=== PATIENT | female | born 1945 | race Caucasian/White ===

== ENCOUNTER 2017-10-10 14:21 | Inpatient (IN) | payer MEDICARE ==
[2017-10-10] MEDS ORDERED: NITROGLYCERIN OINT 1 INCH/GM PACKET TOPICAL STA (14:28)
[2017-10-10] MEDS ORDERED: ATORVASTATIN 80 MG TAB PO STA (14:29)
--- NOTE | 2017-10-10 14:36 | ED ---
Chest Pain HPI - General Stated Complaint: STEMI Time Seen by Provider: 10/10/17 14:21 Source: patient, RN/MD, EMS, RN notes reviewed Mode of arrival: EMS - History of Present Illness Initial Comments: This is a 72-year-old female history of hypertension thyroid disease who was sent from [facility] with reports of an inferior wall myocardial infarction. Patient apparently last week has some burning to her jaw and mouth area while she was biking. She normally walks and bikes every day today she was out biking and walking and had no pain but her thought she looked a little bit pale and she may pass out she was taken to [facility] and found have on her EKG elevations in leads II, III, and F aVF. She was transferred to this facility for evaluation by cardiology. She currently is pain-free he only said that she had this morning was dizziness no chest pain no jaw pain. Upon arrival she was seen in this facility by Dr. Bellamy. No other complaints other modifying factors. MD Complaint: chest pain - Related Data Allergies Allergy/AdvReac Type Severity Reaction Status Date / Time No Known Allergies Allergy Verified 10/10/17 14:35 Review of Systems ROS Statement: Those systems with pertinent positive or pertinent negative responses have been documented in the HPI. ROS Other: All systems not noted in ROS Statement are negative. General Exam - General Exam Comments Initial Comments: This a well-developed molars awake alert oriented 3 female General appearance: alert, in no apparent distress Head exam: Present: atraumatic, normocephalic, normal inspection Eye exam: Present: normal appearance, PERRL, EOMI. Absent: scleral icterus, conjunctival injection, periorbital swelling ENT exam: Present: normal exam, mucous membranes moist Neck exam: Present: normal inspection. Absent: tenderness, meningismus, lymphadenopathy Respiratory exam: Present: normal lung sounds bilaterally. Absent: respiratory distress, wheezes, rales, rhonchi, stridor Cardiovascular Exam: Present: regular rate, normal rhythm, normal heart sounds. Absent: systolic murmur, diastolic murmur, rubs, gallop, clicks GI/Abdominal exam: Present: soft, normal bowel sounds. Absent: distended, tenderness, guarding, rebound, rigid Extremities exam: Present: normal inspection, full ROM, normal capillary refill. Absent: tenderness, pedal edema, joint swelling, calf tenderness Back exam: Present: normal inspection Neurological exam: Present: alert, oriented X3, CN II-XII intact Psychiatric exam: Present: normal affect, normal mood Skin exam: Present: warm, dry, intact, normal color. Absent: rash Course Vital Signs 10/10/17 14:22 Temperature 97 F L Pulse Rate 79 Respiratory 18 Rate Blood Pressure 142/74 O2 Sat by Pulse 99 Oximetry Chest Pain MDM - MDM The patient was seen in the emergency department by cardiology and will was taken to the General Office Worker for evaluation. Patient is a city call the patient I did discuss the case with Dr. Da Silva Disposition Clinical Impression: ST elevation myocardial infarction (STEMI) Disposition: ADMITTED IP TO THIS HOSP Condition: Serious
[2017-10-10 14:41] LABS: Basophils % (A) 0 %; Eosinophils % (A) 0 %; HCT 38.3 % (34.0-46.0); HGB 12.8 gm/dL (11.4-16.0); Lymphocytes # (A) 0.9 k/uL (1.0-4.8); Lymphocytes % (A) 13 %; MCH 29.6 pg (25.0-35.0); MCHC 33.4 g/dL (31.0-37.0); MCV 88.7 fL (80.0-100.0); Mean Platelet Volume 6.3; Monocytes # (A) 0.3 k/uL (0-1.0); Monocytes % (A) 5 %; Neutrophils # (A) 5.8 k/uL (1.3-7.7); Neutrophils % (A) 80 %; Platelet Count 169 k/uL (150-450); RBC 4.32 m/uL (3.80-5.40); RDW 13.7 % (11.5-15.5); WBC 7.2 k/uL (3.8-10.6)
[2017-10-10 14:48] LABS: ALT 38 U/L (9-52); AST 69 U/L (14-36); Albumin 3.8 g/dL (3.5-5.0); Alkaline Phosphatase 57 U/L (38-126); Anion Gap 5 mmol/L; Blood Urea Nitrogen 17 mg/dL (7-17); Carbon Dioxide 25 mmol/L (22-30); Chloride 110 mmol/L (98-107); Glucose 119 mg/dL (74-99); Potassium 4.4 mmol/L (3.5-5.1); Sodium 140 mmol/L (137-145); Total Bilirubin 0.6 mg/dL (0.2-1.3); Total Protein 6.2 g/dL (6.3-8.2)
[2017-10-10] MEDS ORDERED: MIDAZOLAM 2 MG/2 ML VIAL IVP ONE (14:52)
[2017-10-10] MEDS ORDERED: LIDOCAINE 1% INJ 10MG/ML (20 ML MDV) SQ ONE (14:52)
[2017-10-10] MEDS ORDERED: fentaNYL (PF) 50 MCG/ML 2 ML AMP IVP ONE (14:52)
[2017-10-10 15:00] LABS: INR 1.1 (<1.2); Prothrombin Time 10.8 sec (9.0-12.0)
[2017-10-10] MEDS ORDERED: HEPARIN SOD,PORK IN 0.45% NACL 25,000 UNIT in 0.45% NACL 1 500ML.BAG IV SCH (15:00)
[2017-10-10 15:10] LABS: Glucose,Whole Blood 123 mg/dL (75-99)
[2017-10-10 15:10] LABS: Partial Thromboplastin Time 122.7 sec (22.0-30.0)
[2017-10-10] MEDS ORDERED: NITROGLYCERIN SL TABS 0.4 MG TAB SUBLINGUAL PRN (15:14)
[2017-10-10 15:20] LABS: Creatine Kinase MB 53.7 ng/mL (0.0-2.4); Troponin I 3.51 ng/mL (0.000-0.034)
--- NOTE | 2017-10-10 15:23 | ED ---
Medical Decision Making - Lab Data Result diagrams: 10/10/17 14:30 10/10/17 14:30 Lab Results 10/10/17 10/10/17 10/10/17 Range/Units 14:30 14:30 14:30 WBC 7.2 (3.8-10.6) k/uL RBC 4.32 (3.80-5.40) m/uL Hgb 12.8 (11.4-16.0) gm/dL Hct 38.3 (34.0-46.0) % MCV 88.7 (80.0-100.0) fL MCH 29.6 (25.0-35.0) pg MCHC 33.4 (31.0-37.0) g/dL RDW 13.7 (11.5-15.5) % Plt Count 169 (150-450) k/uL Neutrophils % 80 % Lymphocytes % 13 % Monocytes % 5 % Eosinophils % 0 % Basophils % 0 % Neutrophils # 5.8 (1.3-7.7) k/uL Lymphocytes # 0.9 L (1.0-4.8) k/uL Monocytes # 0.3 (0-1.0) k/uL Eosinophils # 0.0 (0-0.7) k/uL Basophils # 0.0 (0-0.2) k/uL PT (9.0-12.0) sec INR (<1.2) APTT (22.0-30.0) sec Sodium 140 (137-145) mmol/L Potassium 4.4 (3.5-5.1) mmol/L Chloride 110 H (98-107) mmol/L Carbon Dioxide 25 (22-30) mmol/L Anion Gap 5 mmol/L BUN 17 (7-17) mg/dL Creatinine 0.70 (0.52-1.04) mg/dL Est GFR (CKD-EPI)AfAm >90 (>60 ml/min/1.73 sqM) Est GFR (CKD-EPI)NonAf 87 (>60 ml/min/1.73 sqM) Glucose 119 H (74-99) mg/dL Calcium 9.0 (8.4-10.2) mg/dL Total Bilirubin 0.6 (0.2-1.3) mg/dL AST 69 H (14-36) U/L ALT 38 (9-52) U/L Alkaline Phosphatase 57 (38-126) U/L Total Creatine Kinase 443 H (30-135) U/L Total Protein 6.2 L (6.3-8.2) g/dL Albumin 3.8 (3.5-5.0) g/dL 10/10/17 Range/Units 14:30 WBC (3.8-10.6) k/uL RBC (3.80-5.40) m/uL Hgb (11.4-16.0) gm/dL Hct (34.0-46.0) % MCV (80.0-100.0) fL MCH (25.0-35.0) pg MCHC (31.0-37.0) g/dL RDW (11.5-15.5) % Plt Count (150-450) k/uL Neutrophils % % Lymphocytes % % Monocytes % % Eosinophils % % Basophils % % Neutrophils # (1.3-7.7) k/uL Lymphocytes # (1.0-4.8) k/uL Monocytes # (0-1.0) k/uL Eosinophils # (0-0.7) k/uL Basophils # (0-0.2) k/uL PT 10.8 (9.0-12.0) sec INR 1.1 (<1.2) APTT 122.7 H* (22.0-30.0) sec Sodium (137-145) mmol/L Potassium (3.5-5.1) mmol/L Chloride (98-107) mmol/L Carbon Dioxide (22-30) mmol/L Anion Gap mmol/L BUN (7-17) mg/dL Creatinine (0.52-1.04) mg/dL Est GFR (CKD-EPI)AfAm (>60 ml/min/1.73 sqM) Est GFR (CKD-EPI)NonAf (>60 ml/min/1.73 sqM) Glucose (74-99) mg/dL Calcium (8.4-10.2) mg/dL Total Bilirubin (0.2-1.3) mg/dL AST (14-36) U/L ALT (9-52) U/L Alkaline Phosphatase (38-126) U/L Total Creatine Kinase (30-135) U/L Total Protein (6.3-8.2) g/dL Albumin (3.5-5.0) g/dL Disposition Clinical Impression: ST elevation myocardial infarction (STEMI) Disposition: ADMITTED IP TO THIS HOSP Condition: Serious
[2017-10-10] MEDS ORDERED: ATROPINE SULFATE 0.1 MG/ML 10ML SYRINGE IVP ONE (15:30)
[2017-10-10] MEDS ORDERED: NITROGLYCERIN 1000MCG/10ML SYRINGE INTRACORON ONE (15:32)
[2017-10-10] MEDS ORDERED: IOPAMIDOL-370 125ML BTL INJ ONE (15:34)
[2017-10-10] MEDS ORDERED: IOPAMIDOL-370 100ML BTL INJ ONE (15:35)
[2017-10-10] MEDS ORDERED: CLOPIDOGREL 75 MG TAB PO ONE (15:41)
[2017-10-10] MEDS ORDERED: ATROPINE SULFATE 0.1 MG/ML 10ML SYRINGE IV PRN (15:42)
[2017-10-10] MEDS ORDERED: ZOLPIDEM 5 MG TAB PO PRN (15:42)
[2017-10-10] MEDS ORDERED: MAG HYDROX/AL HYDROX/SIMETH 30 ML CUP PO PRN (15:42)
[2017-10-10] MEDS ORDERED: RX INFO: IV CONTRAST WAS GIVEN 1 EACH MISC MISCELLANE PRN (15:42)
[2017-10-10] MEDS ORDERED: IV FLUID CONTINUATION 1,000 ML IV ONE (15:44)
--- NOTE | 2017-10-10 16:54 | CONS ---
CONSULTATION Meenakshi Piedra is a 72-year-old female who went to [facility] after being very dizzy and lightheaded and her finding her connor and not looking well. She was there approximately 12 noon. I received a call from that this is a lady who presented with syncope and her 12-lead ECG showed ST elevation in the inferior leads, but she was completely pain free. According to the patient, she walks 1 mile every day starting at around 4 o'clock in the morning. Then she bicycles 5 miles every day in the morning too. Over the last 1 week she has been experiencing intermittent pain in the roof of the mouth as well as in the neck, but she did not been seek any medical attention. She has no chest pain, no shortness of breath. This morning, she went for her usual walk and then bike and when she came back, she felt very dizzy and lightheaded. At no point in time did she have any jaw discomfort today. No chest pain. No undue shortness of breath. Her thought that she looked very poorly and looked connor and was brought to the ER. A 12-lead ECG that showed ST-elevation in the inferior leads with Q-waves. When she arrived here, she was completely asymptomatic. Her 12-lead ECG showed Q-waves with ST elevation and T-wave inversion suggestive of a completed inferior wall [place]. PAST HISTORY: Hypertension. She takes metoprolol for this. She has a history of dyslipidemia and does not take any cholesterol-lowering medications or statins. She denies any diabetes. SOCIAL HISTORY: She is a nonsmoker. No significant alcohol use. REVIEW OF SYSTEMS: No fever, chills, or rigors. No cough or expectoration. No nausea, vomiting, or diarrhea. No hematuria or dysuria. No strokes or seizures. No skin lesions or musculoskeletal complaints. EXAMINATION: When she arrived, her blood pressure was 142/74 mmHg, afebrile at 97 degrees Fahrenheit, pulse rate in the 70s. Head and neck examination is normal. No JVD, thyromegaly or carotid bruits. Heart sounds S1, S2 normal. No murmurs or gallops no rub. The breath sounds are clear. No rhonchi. No crackles. Extremities are warm. No edema. A 12-lead ECG shows a ST elevation in inferior leads with Q-waves as well as T-wave inversions consistent with a completed recent myocardial infarction. IMPRESSION: 1. Completed inferior wall myocardial infarction. 2. Hypertension. 3. Dyslipidemia. SUGGEST: Proceed with coronary angiography today. I spoke to Dr. Bautista. I spoke to the patient and daughter and explained this to them in detail. She has been treated with IV heparin and aspirin in the emergency room at [facility]. We gave statins. She is already on beta blockers and she is being transferred to the chemistry laboratory technician. Further management thereafter. MMODL / IJN: [id number] /
--- NOTE | 2017-10-10 17:03 | CC ---
CARDIAC CATHETERIZATION REPORT Mrs. Piedra is a 72-year-old lady who was transferred from the [facility] where she presented with symptoms of not feeling well. She was connor and she had a dizzy spell. EKG was suggestive of acute inferior wall myocardial infarction. Patient was transferred over here. Patient received a heparin bolus was started on heparin drip and got 4 aspirin. When the patient arrived here she was almost pain free. There was a mild ST-segment elevation. The patient has a history of hypertension. There is no previous history of angina. In route from [facility] to the ER here the patient did get excessive amount of heparin and her ACT was more than 300 before we started the procedure. PROCEDURE: The right groin was prepped and draped in the usual manner and the skin was infiltrated with 2% Xylocaine. The right femoral artery was entered using Seldinger technique a #6- Chinese sheath was placed in. Selective coronary angiography was then performed in multiple projections and the left ventricular pressures were obtained. The patient tolerated the procedure well. HEMODYNAMICS: The left ventricular end-diastolic pressure is 20 mmHg prior to angiography. No gradient is noted across the aortic valve. SELECTIVE CORONARY ANGIOGRAPHY: Left main coronary artery is normal and patent. LAD is a good caliber blood vessel and gives rise to a medium-sized diagonal branch. The LAD after the origin of the diagonal branch has 80% stenosis. The ostium of the diagonal branch has an 85% stenosis. Circumflex coronary artery is normal. Right coronary artery has diffuse disease and there was a 99% stenosis in its mid portion with CASTRO-3 flow noted. FINAL IMPRESSION: This study shows a 99% stenosis of the mid RCA with CASTRO-3 flow. The LAD has 80% stenosis. The first diagonal branch is 80-90% stenosis. RECOMMENDATIONS: Films were reviewed with Dr. Manzo. We will proceed with a stent to the RCA. MMODL / IJN: [id number] /
[2017-10-10 18:48] LABS: Potassium 3.9 mmol/L (3.5-5.1)
[2017-10-10 19:38] LABS: Glucose,Whole Blood 87 mg/dL (75-99)
[2017-10-10] MEDS: SODIUM CHLORIDE 0.9% 1,000 ML IV SCH (20:00)
[2017-10-10] MEDS ORDERED: SODIUM CHLORIDE 0.9% 1,000 ML IV ONE (20:55)
[2017-10-10] MEDS: DOPamine DRIP 800 MG in DEXTROSE/WATER 1 500ML.BAG IV SCH (21:37)
[2017-10-10 22:42] LABS: HCT 33.1 % (34.0-46.0); HGB 11.2 gm/dL (11.4-16.0); MCH 29.7 pg (25.0-35.0); MCHC 33.8 g/dL (31.0-37.0); Mean Platelet Volume 6.8; Platelet Count 206 k/uL (150-450); RBC 3.76 m/uL (3.80-5.40); RDW 13.6 % (11.5-15.5); WBC 10.3 k/uL (3.8-10.6)
--- NOTE | 2017-10-10 23:10 | P.CONS ---
History of Present Illness - Reason for Consult Consult date: 10/10/17 medical management Requesting physician: Wander Arroyo - Chief Complaint lighthededness, dizziness - History of Present Illness 72-year-old female with past medical history of hypertension, hypothyroid and hyperlipidemia. Patient presented to the hospital due to not feeling well, patient was having some dizzy spells today after working out. She claims that for many years now she walks sometimes runs 1 mile every day and rides her bike for 5 miles every day. However today after her routine she felt dizzy and lightheaded and per her she looked "poorly". Patient denies any chest pain or shortness of breath associated with that denies any nausea or vomiting denies any fevers chills and or coughing. She was taken to the hospital at [facility] and EKG suggested an inferior MO she was transferred to our facility for further cardiac care. At our facility patient was taken emergently to the Event Sales Manager and a stent was placed in her RCA. Patient denies any symptoms or history of angina denies any GI bleeding. However she does report history of hyperlipidemia treated and history of premature cad in her dad. Currently patient laying comfortable in bed not in any acute distress denies any chest pain or trouble breathing. Currently patient is being managed in the ICU her blood pressure pressure as being borderline and cardiology recommended starting dopamine, this by that patient continues to be asymptomatic. Review of Systems Pertinent positives as noted in HPI. All other systems were reviewed and are negative Past Medical History Past Medical History: Hyperlipidemia, Hypertension Additional Past Medical History / Comment(s): UTERINE CANCER History of Any Multi-Drug Resistant Organisms: None Reported Past Surgical History: Tonsillectomy Additional Past Surgical History / Comment(s): D AND C Past Psychological History: No Psychological Hx Reported Smoking Status: Former smoker Past Alcohol Use History: None Reported Past Drug Use History: None Reported - Past Family History Father Family Medical History: Coronary Artery Disease (CAD) Medications and Allergies Home Medications Medication Instructions Recorded Confirmed Type Fluticasone Nasal [place] [Flonase 1 - 2 spray EA NOSTRIL BID PRN 10/10/17 History Nasal [place]] Levothyroxine Sodium [Synthroid] 100 mcg PO DAILY 10/10/17 10/10/17 History Metoprolol Tartrate [Lopressor] 25 mg PO DAILY 10/10/17 10/10/17 History Allergies Allergy/AdvReac Type Severity Reaction Status Date / Time No Known Allergies Allergy Verified 10/10/17 14:35 Physical Exam Vitals: Vital Signs Temp Pulse Pulse Resp BP BP Pulse Ox 10/10/17 19:20 97.8 F 62 23 86/59 97 10/10/17 19:18 27 H 10/10/17 18:33 66 16 104/66 97 10/10/17 18:00 56 L 18 113/71 97 10/10/17 17:30 62 18 115/73 99 10/10/17 17:14 78 18 121/76 97 10/10/17 16:51 70 16 97 10/10/17 16:33 82 18 119/69 96 10/10/17 16:10 85 16 119/76 97 10/10/17 14:22 97 F L 79 18 142/74 99 Intake and Output 10/10/17 10/10/17 10/10/17 06:59 14:59 22:59 Intake Total 250 Balance 250 Intake: IV 250 Other: # Voids 1 Weight 63.503 kg Constitutional: No acute distress, conversant, pleasant Eyes: Anicteric sclerae, moist conjunctiva, no lid-lag Pupils equal round reactive to light ENMT: NC/AT Oropharynx clear, no erythema, exudates Neck: Supple, FROM, no masses, or JVD No carotid bruits No thyromegaly Lungs: Clear to auscultation Clear to percussion Normal respiratory effort, no accessory muscle use Cardiovascular: Heart regular in rate and rhythm, No murmurs, gallops, or rubs No peripheral edema Abdominal: Soft Nontender, no guarding, rebound or rigidity Abdomen moving with respiration Normoactive bowel sounds No hepatomegaly, No splenomegaly No palpable mass No abdominal wall hernia noted Skin: Normal temperature, tone, texture, turgor No induration No subcutaneous nodules No rash, lesions No ulcers Extremities: Right groin arterial line, no surrounding bruising or hematoma No digital cyanosis No clubbing Pedal pulses intact and symmetrical Radial pulses intact and symmetrical No calf tenderness Psychiatric: Alert and oriented to person, place and time Appropriate affect fair judgment Neuro Muscles Strength 5/5 in all 4 extremities Sensation to light touch grossly present throughout Cranial nerves II-XII grossly intact No focal sensory deficits Lymphatics: no palpable cervical or supraclavicular , or inguinal lymph nodes Results CBC & Chem 7: 10/10/17 22:30 10/10/17 17:40 Labs: Abnormal Lab Results - Last 24 Hours (Table) 10/10/17 10/10/17 10/10/17 Range/Units 14:30 14:30 14:30 RBC (3.80-5.40) m/uL Hgb (11.4-16.0) gm/dL Hct (34.0-46.0) % Lymphocytes # 0.9 L (1.0-4.8) k/uL APTT (22.0-30.0) sec Chloride 110 H (98-107) mmol/L Glucose 119 H (74-99) mg/dL POC Glucose (mg/dL) (75-99) mg/dL AST 69 H (14-36) U/L Total Creatine Kinase 443 H (30-135) U/L CK-MB (CK-2) 53.7 H* (0.0-2.4) ng/mL Troponin I 3.510 H* (0.000-0.034) ng/mL Total Protein 6.2 L (6.3-8.2) g/dL 10/10/17 10/10/17 10/10/17 Range/Units 14:30 14:36 15:30 RBC (3.80-5.40) m/uL Hgb (11.4-16.0) gm/dL Hct (34.0-46.0) % Lymphocytes # (1.0-4.8) k/uL APTT 122.7 H* >200.0 H* (22.0-30.0) sec Chloride (98-107) mmol/L Glucose (74-99) mg/dL POC Glucose (mg/dL) 123 H (75-99) mg/dL AST (14-36) U/L Total Creatine Kinase (30-135) U/L CK-MB (CK-2) (0.0-2.4) ng/mL Troponin I (0.000-0.034) ng/mL Total Protein (6.3-8.2) g/dL 10/10/17 10/10/17 Range/Units 20:35 22:30 RBC 3.76 L (3.80-5.40) m/uL Hgb 11.2 L (11.4-16.0) gm/dL Hct 33.1 L (34.0-46.0) % Lymphocytes # (1.0-4.8) k/uL APTT >200.0 H* (22.0-30.0) sec Chloride (98-107) mmol/L Glucose (74-99) mg/dL POC Glucose (mg/dL) (75-99) mg/dL AST (14-36) U/L Total Creatine Kinase (30-135) U/L CK-MB (CK-2) (0.0-2.4) ng/mL Troponin I (0.000-0.034) ng/mL Total Protein (6.3-8.2) g/dL Assessment and Plan Assessment: 72-year-old female with history of hypertension, hypothyroid, hyperlipidemia. Patient presented to the hospital from [facility] due to inferior MO, patient was taken to the clinical laboratory science professor and stent was placed in the RCA. Currently her blood pressure is borderline low and was started on dopamine for cardiology patient continues to be asymptomatic posterior left heart cath. Medicine was consult for medical management Plan: Completed Inferior wall myocardial infarction Coronary artery disease Status post left heart cath, stent and RCA aspirin and Plavix and statin Cardiology following Due to hypotension patient was not initiated on beta ashley and MATHEW inhibitor Hypotension currently asymptomatic On dopamine per cardiology Monitor urine output Monitor renal function History of hypertension currently hypotensive as above Hypothyroidism Continue levothyroxine Hyperlipidemia Atorvastatin DVT prophylaxis Heparin subcu 3 times a day Mild anemia Continue to monitor hemoglobin Consider outpatient workup and follow-up Follow up labs Thank you for allowing us to participate in the care of this patient. Do not hesitate to contact us with questions. Someone can be reached from the [facility] hospitalist group at all hours of the day at [phone].
[2017-10-10] MEDS: ATORVASTATIN 80 MG TAB PO SCH (23:28)
[2017-10-10] MEDS ORDERED: HYDROcodone/APAP 5-325MG 1 EACH TAB PO PRN (23:36)
--- NOTE | 2017-10-11 05:06 | PTCA ---
PERCUTANEOUSTRANS CORORONARY ANGIOGRAPHY DATE OF SERVICE: 10/10/2017 PERFORMING PHYSICIAN: Bola Manzo MD, Mortgage Closing Clerk PROCEDURE PERFORMED: Successful stenting of the mid RCA using 2.5 x 15 mm Xience STEPHANIE with good angiographic results. INDICATION: This is a pleasant 72-year-old female patient who presented to the emergency room and admitted at [facility] complaining of chest discomfort and she was myocardial infarction. She was transferred immediately to [facility] where the patient underwent a heart catheterization by Dr. Bautista and was found to have critical disease involving the mid RCA. The decision was made towards percutaneous coronary intervention. APPROACH: Right common femoral artery. COMPLICATION: None. LEVEL OF SEDATION: Moderate with sedation length of 28 minutes. PROCEDURE DESCRIPTION: After diagnostic heart catheterization was performed by Dr. Erika Bautista and after reviewing the angiogram, I did engage the RCA using a JR4 guiding catheter. A whisper wire was used to wire . After that, I did using 2 12 mm balloon before I deployed 2.5 x 15 mm Xience STEPHANIE where the stent was positioned under fluoroscopy guidance and deployed under its nominal pressure. The following angiogram showed good angiographic results. The procedure was completed without any complication. Please note that I did not use any anticoagulation because the patient was given high dose heparin and the ACT . POSTPROCEDURE MANAGEMENT: 1. Dual antiplatelet therapy. 2. Risk factors modifications. 3. Follow up with the patient. MMODL / IJN: [id number] /
[2017-10-11 05:18] LABS: Basophils % (A) 0 %; Eosinophils % (A) 0 %; HCT 33.6 % (34.0-46.0); HGB 11.4 gm/dL (11.4-16.0); Lymphocytes # (A) 0.8 k/uL (1.0-4.8); Lymphocytes % (A) 9 %; MCH 30.2 pg (25.0-35.0); Mean Platelet Volume 7.1; Monocytes # (A) 0.5 k/uL (0-1.0); Monocytes % (A) 5 %; Neutrophils # (A) 7.9 k/uL (1.3-7.7); Neutrophils % (A) 84 %; Platelet Count 207 k/uL (150-450); RBC 3.77 m/uL (3.80-5.40); RDW 13.8 % (11.5-15.5); WBC 9.5 k/uL (3.8-10.6)
[2017-10-11 05:38] LABS: ALT 56 U/L (9-52); AST 263 U/L (14-36); Albumin 3.2 g/dL (3.5-5.0); Alkaline Phosphatase 52 U/L (38-126); Anion Gap 5 mmol/L; Blood Urea Nitrogen 15 mg/dL (7-17); Calcium 8.5 mg/dL (8.4-10.2); Carbon Dioxide 22 mmol/L (22-30); Chloride 112 mmol/L (98-107); Cholesterol 191 mg/dL (<200); Glucose 129 mg/dL (74-99); HDL Cholesterol 55 mg/dL (40-60); LDL Cholesterol,Calculated 121 mg/dL (0-99); Potassium 3.6 mmol/L (3.5-5.1); Sodium 139 mmol/L (137-145); Total Bilirubin 0.9 mg/dL (0.2-1.3); Total Protein 5.2 g/dL (6.3-8.2); Triglycerides 74 mg/dL (<150)
[2017-10-11 06:12] LABS: Troponin I 38.3 ng/mL (0.000-0.034)
[2017-10-11 07:34] LABS: T4, Free (Free Thyroxine) 1.57 ng/dL (0.78-2.19)
[2017-10-11] MEDS ORDERED: HEPARIN SODIUM,PORCINE 5,000 UNIT/ML 1 ML VIAL SQ SCH (08:00)
[2017-10-11] MEDS ORDERED: Potassium Replacement Protocol 1 EACH MISC MISCELLANE PRN (08:23)
[2017-10-11] MEDS: ASPIRIN 81 MG PO SCH (08:26)
[2017-10-11] MEDS: LEVOTHYROXINE 100 MCG TAB PO SCH (08:26)
[2017-10-11] MEDS: SODIUM CHLORIDE 0.9% 1,000 ML IV SCH ×5 (08:27→22:07)
[2017-10-11] MEDS ORDERED: POTASSIUM CHLORIDE ER 20 MEQ TAB.ER PO SCH (09:00)
[2017-10-11] MEDS ORDERED: ASPIRIN 325 MG TAB PO SCH (09:00)
--- NOTE | 2017-10-11 09:43 | P.PN ---
Subjective Progress Note Date: 10/11/17 Principal diagnosis: STEMI Patient is doing well today. She is awake and alert. She denies any chest pain. She still requiring dopamine and her systolic blood pressure is in the 80s and low 90s. Cardiology following closely. Objective - Vital Signs Vital signs: Vital Signs Temp 97.9 F 10/11/17 04:00 Pulse 74 10/11/17 08:00 Resp 26 H 10/11/17 08:00 BP 98/52 10/11/17 08:00 Pulse Ox 100 10/11/17 08:00 Intake & Output 10/10/17 10/11/17 10/11/17 18:59 06:59 18:59 Intake Total 250 2250 100 Output Total 225 Balance 250 5 100 Weight 63.503 kg 63.5 kg Intake: IV 250 2250 100 Sodium Chloride 0.9% 1, 750 100 000 ml @ 100 mls/hr IV . Q10H [facility] Rx#:[id number] Sodium Chloride 0.9% 1, 1500 000 ml @ 999 mls/hr IV . Q1H1M ONE Rx#:[id number] Output: Urine 225 Other: # Voids 1 1 ABP, PAP, CO, CI - Last Documented Arterial Blood Pressure 49/49 - Exam General: The patient is awake and alert, in no distress Eye: there is normal conjunctiva bilaterally. Neck: The neck is supple, there is no JVD. Cardiovascular: Normal S1-S2, no S3-S4, no murmurs. Respiratory: Lungs clear to auscultation bilaterally Gastrointestinal: Abdomen is soft, nontender Musculoskeletal: There is no pedal edema. Neurological:. Speech is normal. Skin: Skin is warm and dry - Labs CBC & Chem 7: 10/11/17 04:56 10/11/17 04:56 Labs: Abnormal Lab Results - Last 24 Hours (Table) 10/10/17 10/10/17 10/10/17 Range/Units 14:30 14:30 14:30 RBC (3.80-5.40) m/uL Hgb (11.4-16.0) gm/dL Hct (34.0-46.0) % Neutrophils # (1.3-7.7) k/uL Lymphocytes # 0.9 L (1.0-4.8) k/uL APTT (22.0-30.0) sec Chloride 110 H (98-107) mmol/L Glucose 119 H (74-99) mg/dL POC Glucose (mg/dL) (75-99) mg/dL AST 69 H (14-36) U/L ALT (9-52) U/L Total Creatine Kinase 443 H (30-135) U/L CK-MB (CK-2) 53.7 H* (0.0-2.4) ng/mL Troponin I 3.510 H* (0.000-0.034) ng/mL Total Protein 6.2 L (6.3-8.2) g/dL Albumin (3.5-5.0) g/dL LDL Cholesterol, Calc (0-99) mg/dL TSH (0.465-4.680) mIU/L 10/10/17 10/10/17 10/10/17 Range/Units 14:30 14:36 15:30 RBC (3.80-5.40) m/uL Hgb (11.4-16.0) gm/dL Hct (34.0-46.0) % Neutrophils # (1.3-7.7) k/uL Lymphocytes # (1.0-4.8) k/uL APTT 122.7 H* >200.0 H* (22.0-30.0) sec Chloride (98-107) mmol/L Glucose (74-99) mg/dL POC Glucose (mg/dL) 123 H (75-99) mg/dL AST (14-36) U/L ALT (9-52) U/L Total Creatine Kinase (30-135) U/L CK-MB (CK-2) (0.0-2.4) ng/mL Troponin I (0.000-0.034) ng/mL Total Protein (6.3-8.2) g/dL Albumin (3.5-5.0) g/dL LDL Cholesterol, Calc (0-99) mg/dL TSH (0.465-4.680) mIU/L 10/10/17 10/10/17 10/10/17 Range/Units 20:35 22:30 22:30 RBC 3.76 L (3.80-5.40) m/uL Hgb 11.2 L (11.4-16.0) gm/dL Hct 33.1 L (34.0-46.0) % Neutrophils # (1.3-7.7) k/uL Lymphocytes # (1.0-4.8) k/uL APTT >200.0 H* (22.0-30.0) sec Chloride (98-107) mmol/L Glucose (74-99) mg/dL POC Glucose (mg/dL) (75-99) mg/dL AST (14-36) U/L ALT (9-52) U/L Total Creatine Kinase 1231 H (30-135) U/L CK-MB (CK-2) 113.0 H* (0.0-2.4) ng/mL Troponin I 49.000 H* (0.000-0.034) ng/mL Total Protein (6.3-8.2) g/dL Albumin (3.5-5.0) g/dL LDL Cholesterol, Calc (0-99) mg/dL TSH (0.465-4.680) mIU/L 10/11/17 10/11/17 10/11/17 Range/Units 04:56 04:56 04:56 RBC 3.77 L (3.80-5.40) m/uL Hgb (11.4-16.0) gm/dL Hct 33.6 L (34.0-46.0) % Neutrophils # 7.9 H (1.3-7.7) k/uL Lymphocytes # 0.8 L (1.0-4.8) k/uL APTT (22.0-30.0) sec Chloride 112 H (98-107) mmol/L Glucose 129 H (74-99) mg/dL POC Glucose (mg/dL) (75-99) mg/dL AST 263 H (14-36) U/L ALT 56 H (9-52) U/L Total Creatine Kinase 1296 H (30-135) U/L CK-MB (CK-2) 103.0 H* (0.0-2.4) ng/mL Troponin I 38.300 H* (0.000-0.034) ng/mL Total Protein 5.2 L (6.3-8.2) g/dL Albumin 3.2 L (3.5-5.0) g/dL LDL Cholesterol, Calc 121 H (0-99) mg/dL TSH 0.267 L (0.465-4.680) mIU/L Assessment and Plan Assessment: 72-year-old female with history of hypertension, hypothyroid, hyperlipidemia. Patient presented to the hospital from [facility] due to inferior AL, patient was taken to the ammunition [employer] laborer and stent was placed in the RCA. Currently her blood pressure is borderline low and she is still maintained on dopamine for cardiology patient continues to be asymptomatic post left heart cath. No acute events overnight Plan: Completed Inferior wall myocardial infarction Coronary artery disease Status post left heart cath, stent and RCA aspirin and Plavix and statin Cardiology following Due to hypotension patient was not initiated on beta ashley and MATHEW inhibitor Hypotension currently asymptomatic On dopamine per cardiology Monitor urine output Monitor renal function History of hypertension currently hypotensive as above Hypothyroidism Continue levothyroxine Hyperlipidemia Atorvastatin DVT prophylaxis Heparin subcu 3 times a day Mild anemia Continue to monitor hemoglobin Consider outpatient workup and follow-up
[2017-10-11] MEDS: CLOPIDOGREL 75 MG TAB PO SCH (11:27)
--- NOTE | 2017-10-11 12:17 | ECHOF ---
Referral Reason:s/p STEMI MEASUREMENTS -------- HEIGHT: 154.9 cm WEIGHT: 63.5 kg BP: 119/69 RVIDd: 2.3 cm (< 3.3) IVSd: 0.9 cm (0.6 - 1.1) LVIDd: 4.7 cm (3.9 - 5.3) LVPWd: 0.9 cm (0.6 - 1.1) IVSs: 1.0 cm LVIDs: 3.4 cm LVPWs: 1.1 cm LAESV Index (A-L): 19.65 ml/m Ao Diam: 2.7 cm (2.0 - 3.7) AV Cusp: 1.6 cm (1.5 - 2.6) LA Diam: 2.2 cm (2.7 - 3.8) EPSS: 1.0 cm MV E Ld: 0.67 m/s MV DecT: 266 ms MV A Ld: 0.98 m/s MV E/A Ratio: 0.68 RAP: 5.00 mmHg RVSP: 11.16 mmHg MV EF SLOPE: 130.90 mm/s (70 - 150) MV EXCURSION: 2.17 cm (> 18.000) FINDINGS -------- Sinus rhythm. This was a technically adequate study. The left ventricular size is normal. Left ventricular wall thickness is normal. Overall left vent ricular systolic function is mild-moderately impaired with, an EF between 40 - 45 %. The right ventricle is normal in size and function. Normal LA size by volume 22+/-6 ml/m2. The right atrium is normal in size. Aortic valve is trileaflet and is mildly thickened. There is no evidence of aortic regurgitation. There is no evidence of aortic stenosis. The mitral valve leaflets are mildly thickened. There is trace to mild mitral regurgitation. Trace tricuspid regurgitation present. Right ventricular systolic pressure is normal at < 35 mmHg. There is no evidence of pulmonary hypertension. The pulmonic valve was not well visualized. The aortic root size is normal. Normal inferior vena cava with normal inspiratory collapse consistent with estimated right atrial pre ssure of 5 mmHg. There is no pericardial effusion. CONCLUSIONS -------- 1. Sinus rhythm. 2. This was a technically adequate study. 3. The left ventricular size is normal. 4. Left ventricular wall thickness is normal. 5. Overall left ventricular systolic function is mild-moderately impaired with, an EF between 40 - 45 %. 6. Normal LA size by volume 22+/-6 ml/m2. 7. Aortic valve is trileaflet and is mildly thickened. 8. The mitral valve leaflets are mildly thickened. 9. There is trace to mild mitral regurgitation. 10. Trace tricuspid regurgitation present. 11. Right ventricular systolic pressure is normal at < 35 mmHg. 12. There is no evidence of pulmonary hypertension. 13. The pulmonic valve was not well visualized. 14. The aortic root size is normal. 15. There is no pericardial effusion. CRM SOLUTION ARCHITECT: Nelson Marquez RDCS
[2017-10-11 13:22] LABS: Hemoglobin A1C 5.1 % (4.0-6.0)
[2017-10-11 14:31] VITALS: BMI 30.5
--- NOTE | 2017-10-11 15:46 | PN ---
PROGRESS NOTE Mrs. Piedra is a 72-year-old female, who was admitted with acute inferior wall myocardial infarction. Patient underwent stent to the RCA. The patient also had a significant disease in the mid LAD. The patient is comfortable, is dry and warm. Denies any chest pain, shortness of breath or dizziness, but her blood pressure is running in the range of 75-85 per minute. Her urine output is she so far urine output of 500 mL this morning. Patient did received the fluids during the night. She denies any chest pain. The blood pressure is 185/70 mmHg. Heart: S1 and S2 normal. Lungs are clinically clear to auscultation and percussion. Patient's hemoglobin is 11.4, creatinine is 0.6. IMPRESSION: The patient's hypotension is most likely secondary acute inferior wall myocardial infarction and associated right ventricular infarct. We will give her another 250 mL/hour x6 and then increase the fluids to 150 mL/hour. ALT and AST are elevated. We will review the patient's echocardiogram. The patient's maximum troponin was 49. We will discontinue the subcu heparin. MMODL / IJN: [id number] /
[2017-10-11] MEDS: ATORVASTATIN 80 MG TAB PO SCH (20:39)
[2017-10-11] MEDS: DOPamine DRIP 800 MG in DEXTROSE/WATER 1 500ML.BAG IV SCH (22:56)
[2017-10-12] MEDS: ACETAMINOPHEN TAB 325 MG TAB PO PRN (00:58)
[2017-10-12 05:09] LABS: Basophils % (A) 0 %; Eosinophils # (A) 0.1 k/uL (0-0.7); Eosinophils % (A) 2 %; HCT 27.5 % (34.0-46.0); Lymphocytes # (A) 1.2 k/uL (1.0-4.8); Lymphocytes % (A) 22 %; MCH 30.1 pg (25.0-35.0); MCHC 34.1 g/dL (31.0-37.0); MCV 88.3 fL (80.0-100.0); Mean Platelet Volume 6.7; Monocytes # (A) 0.5 k/uL (0-1.0); Monocytes % (A) 8 %; Neutrophils # (A) 3.5 k/uL (1.3-7.7); Neutrophils % (A) 64 %; Platelet Count 149 k/uL (150-450); RBC 3.11 m/uL (3.80-5.40); RDW 13.7 % (11.5-15.5); WBC 5.5 k/uL (3.8-10.6)
[2017-10-12] MEDS: SODIUM CHLORIDE 0.9% 1,000 ML IV SCH ×4 (05:15→20:46)
[2017-10-12 05:21] LABS: Anion Gap 1 mmol/L; Blood Urea Nitrogen 11 mg/dL (7-17); Carbon Dioxide 24 mmol/L (22-30); Chloride 116 mmol/L (98-107); Glucose 106 mg/dL (74-99); Magnesium 1.7 mg/dL (1.6-2.3); Phosphorus 2.1 mg/dL (2.5-4.5); Potassium 3.5 mmol/L (3.5-5.1); Sodium 141 mmol/L (137-145)
[2017-10-12 05:25] LABS: HGB 9.4 gm/dL (11.4-16.0)
[2017-10-12] MEDS: MAGNESIUM SULFATE-D5W PMX 1 GM in DEXTROSE/WATER 1 100ML.BAG IVPB SCH ×2 (05:42→06:43)
[2017-10-12] MEDS: POTASSIUM CHLORIDE ER 20 MEQ TAB.ER PO SCH ×2 (06:29→08:12)
[2017-10-12] MEDS: LEVOTHYROXINE 100 MCG TAB PO SCH (06:29)
[2017-10-12 08:00] LABS: Total Bilirubin 0.5 mg/dL (0.2-1.3)
[2017-10-12] MEDS ORDERED: POTASSIUM PHOSPHATE 10 MMOL in SODIUM CHLORIDE 0.9% 250 ML IV ONE (08:00)
[2017-10-12] MEDS ORDERED: Phosphorus Replacement Protoco 1 EACH MISC MISCELLANE PRN (08:00)
[2017-10-12] MEDS: ASPIRIN 81 MG PO SCH (08:12)
[2017-10-12] MEDS: CLOPIDOGREL 75 MG TAB PO SCH (08:12)
--- NOTE | 2017-10-12 08:28 | XR ---
EXAMINATION TYPE: XR chest 1V portable DATE OF EXAM: 10/12/2017 COMPARISON: 12/22/2010 HISTORY: Congestive heart failure TECHNIQUE: Single frontal view of the chest is obtained. FINDINGS: There is no focal air space opacity, pulmonary vascular congestion, or pneumothorax seen. There is strand-like bibasilar subsegmental atelectasis and right hemidiaphragm slight elevation. Bl unting of the left costophrenic angle likely relates to a trace pleural effusion. The cardiac silhoue tte size is upper limits of normal. The osseous structures are intact. IMPRESSION: Strand-like bibasilar atelectasis and trace left pleural effusion. No focal consolidatio n.
--- NOTE | 2017-10-12 08:30 | P.PN ---
Subjective Progress Note Date: 10/12/17 Principal diagnosis: Chest pain Patient is a 72-year-old female with a history of hypertension, hypothyroidism, and dyslipidemia who presented to [facility] complaints of dizziness. She was found have an ST segment elevated myocardial infarction was transferred here. She was taken to the cemetery laborer by cardiology and had a stent placed to the RCA, she was also noted to have some disease in the LAD. She was subsequently admitted to the ICU. She became hypotensive despite aggressive fluid administration. She subsequently was started on a dopamine drip on 10/11. She was started on aspirin, Plavix, and Lipitor. She had an echocardiogram done which showed an ejection fraction of 40-45%. Patient seen and examined at bedside. She denies any chest pain. Still having some shortness of breath when trying to move around. Denies any lightheadedness or dizziness. Denies any nausea or vomiting. Has been tolerating her diet. Case discussed with nursing. Every time nursing has been trying to decrease her dopamine drip she has had a drop in her blood pressure and then takes a while to recover. They have been having to try to titrate by 0.25 on due to her being so sensitive to the dopamine drip. They also report that she had orthostatic blood pressures lately tried to stand her up yesterday. Objective - Vital Signs Vital signs: Vital Signs Temp 98.1 F 10/12/17 08:00 Pulse 93 10/12/17 08:15 Resp 19 10/12/17 08:15 BP 99/57 10/12/17 08:15 Pulse Ox 98 10/12/17 08:15 Intake & Output 10/11/17 10/12/17 10/12/17 18:59 06:59 18:59 Intake Total 2150 3039.096 405.553 Output Total 1800 2250 325 Balance 350 789.096 80.553 Weight 73.4 kg 77.2 kg Intake: IV 2150 1900 400 Magnesium Sulfate-D5w Pmx 100 100 1 gm In Dextrose/Water 1 100ml.bag @ 100 mls/hr IVPB Q1H [facility] Rx#: [id number] Sodium Chloride 0.9% 1, 500 000 ml @ 100 mls/hr IV . Q10H [facility] Rx#:[id number] Sodium Chloride 0.9% 1, 150 1800 300 000 ml @ 150 mls/hr IV . Q6H40M [facility] Rx#:[id number] Sodium Chloride 0.9% 1, 1500 000 ml @ 250 mls/hr IV . Q4H [facility] Rx#:[id number] Intake, IV Titration 439.096 5.553 Amount DOPamine DRIP 800 mg In 439.096 5.553 Dextrose/Water 1 500ml. bag @ 10 MCG/KG/MIN 23.81 mls/hr IV .Q21H [facility] Rx#: [id number] Oral 700 Output: Urine 1800 2250 325 Other: Voiding Method Bedpan Bedpan # Voids 1 ABP, PAP, CO, CI - Last Documented Arterial Blood Pressure 49/49 - Exam General: Ill-appearing, no distress, appears at stated age Derm: warm, dry Head: atraumatic, normocephalic, symmetric Eyes: EOMI, no lid lag, anicteric sclera Mouth: no lip lesion, mucus membranes moist Cardiovascular: S1S2 reg, no murmur, positive posterior tibial pulse bilateral, Lungs: Rhonchi left base, no rhonchi, no rales , no accessory muscle use Abdominal: soft, nontender to palpation, no guarding, no appreciable organomegaly Ext: no gross muscle atrophy, no edema, no contractures Neuro: CN II-XI grossly intact, no focal neuro deficits Psych: Alert, oriented, appropriate affect - Labs CBC & Chem 7: 10/12/17 04:57 10/12/17 04:57 Labs: Abnormal Lab Results - Last 24 Hours (Table) 10/12/17 10/12/17 10/12/17 Range/Units 04:47 04:57 04:57 RBC 3.11 L (3.80-5.40) m/uL Hgb 9.4 L D (11.4-16.0) gm/dL Hct 27.5 L (34.0-46.0) % Plt Count 149 L (150-450) k/uL Chloride 116 H (98-107) mmol/L Glucose 106 H (74-99) mg/dL Calcium 8.0 L (8.4-10.2) mg/dL Phosphorus 2.1 L (2.5-4.5) mg/dL AST 127 H (14-36) U/L Troponin I (0.000-0.034) ng/mL 10/12/17 Range/Units 04:57 RBC (3.80-5.40) m/uL Hgb (11.4-16.0) gm/dL Hct (34.0-46.0) % Plt Count (150-450) k/uL Chloride (98-107) mmol/L Glucose (74-99) mg/dL Calcium (8.4-10.2) mg/dL Phosphorus (2.5-4.5) mg/dL AST (14-36) U/L Troponin I 14.700 H* (0.000-0.034) ng/mL Assessment and Plan Assessment: Acute ST segment elevated myocardial infarction -Cardiology recommendations -Status post stent RCA -On aspirin, Plavix, and statin Anemia, suspected delusional secondary to aggressive fluid resuscitation -Patient is currently +2.3 L since admission -Check CBC at noon today, ferritin, and iron studies Hypotension, probable causes cardiac shock -Continue with dopamine drip -Wean as tolerated -Discussed with Dr. Manzo Ischemic cardiomyopathy with ejection fraction 40-45% -Patient is still hypotensive but ideally will need lisinopril and Lopressor prior to discharge -We'll need outpatient follow-up with cardiology Hypertension, currently hypotensive -Home Lopressor is on hold -Currently on dopamine drip Dyslipidemia -Statin Hypothyroidism -Levothyroxine DVT prophylaxis: Heparin Discussed with: Patient, nursing, Dr. Manzo Anticipated discharge: 2-[address]: Home A total of 35 minutes was spent on the care of this complex patient more than 50 % of the time was spent in counseling and care coordination.
[2017-10-12] MEDS ORDERED: SODIUM PHOSPHATE 10 MMOL in SODIUM CHLORIDE 0.9% 250 ML IVPB ONE (09:00)
[2017-10-12 12:15] LABS: HCT 27.3 % (34.0-46.0); HGB 9.2 gm/dL (11.4-16.0); MCH 29.9 pg (25.0-35.0); MCHC 33.6 g/dL (31.0-37.0); MCV 88.7 fL (80.0-100.0); Mean Platelet Volume 6.6; Platelet Count 148 k/uL (150-450); RBC 3.08 m/uL (3.80-5.40); RDW 13.8 % (11.5-15.5); WBC 5.3 k/uL (3.8-10.6)
--- NOTE | 2017-10-12 12:20 | PN ---
PROGRESS NOTE This patient is status post inferior wall myocardial infarction. The patient has been maintained on a small dose of dopamine because of the low blood pressure. Yesterday patient was on the bedside commode and develop orthostatic hypotension and dopamine was increased to 10 mg. She is comfortable and resting comfortably. Patient's hemoglobin is 10. First and second heart sounds are normal. Lungs are clinically clear to auscultation and percussion. Patient's urine output is excellent. She has a 1750 mL of urine output during the night. The patient is currently getting dopamine at 4 mcg per hour. Discussed the condition with Dr. Manzo. We will proceed with stent to the LAD, which has got a high-grade stenosis. I discussed the condition with the patient's . MMODL / IJN: [id number] /
[2017-10-12] MEDS ORDERED: LIDOCAINE 1% (PF) 10MG/ML VIAL INTRAARTIC ONE (12:50)
[2017-10-12] MEDS: MIDAZOLAM 2 MG/2 ML VIAL IVP ONE ×2 (12:50→13:06)
[2017-10-12] MEDS: VERAPAMIL SYRINGE (5 MG/10 ML) INTRAARTER ONE ×2 (12:52→13:40)
[2017-10-12] MEDS ORDERED: BIVALIRUDIN BOLUS 250 MG/50 ML IV ONE (13:01)
[2017-10-12] MEDS ORDERED: BIVALIRUDIN 250 MG in SODIUM CHLORIDE 0.9% 50 ML IV ONE (13:01)
[2017-10-12] MEDS: NITROGLYCERIN 1000MCG/10ML SYRINGE INTRACORON ONE ×2 (13:05→13:27)
[2017-10-12] MEDS ORDERED: IOPAMIDOL-370 125ML BTL INJ ONE (13:30)
[2017-10-12] MEDS ORDERED: CLOPIDOGREL 75 MG TAB PO ONE (13:34)
[2017-10-12] MEDS ORDERED: IOPAMIDOL-370 50ML BTL INJ ONE (13:38)
[2017-10-12] MEDS ORDERED: RX INFO: IV CONTRAST WAS GIVEN 1 EACH MISC MISCELLANE PRN (13:40)
[2017-10-12] MEDS ORDERED: SODIUM CHLORIDE 0.9% 1,000 ML IV SCH (13:45)
[2017-10-12] MEDS ORDERED: POTASSIUM CHLORIDE ER 20 MEQ TAB.ER PO SCH (15:00)
[2017-10-12 17:18] LABS: Iron Saturation 11.69 (12.00-45.00)
--- NOTE | 2017-10-12 18:23 | PTCA ---
PERCUTANEOUSTRANS CORORONARY ANGIOGRAPHY DATE OF SERVICE: October 12, 2017 PERFORMING PHYSICIAN: Bola Manzo MD, distribution center associate. PROCEDURE PERFORMED: 1. Successful stenting of the proximal left anterior descending artery using 2.0 x 15 mm Telly drug-eluting stent, which was postdilated using 2.5 mm balloon with good angiographic results and reduction of stenosis from 70% to 0%. 2. Selective right coronary angiogram. INDICATION: This is a pleasant 72-year-old female patient who presented to the hospital few days ago with acute inferior ST-elevation myocardial infarction and underwent heart catheterization by Dr. VC Bautista where she was found to have critical disease involving the mid RCA and severe disease involving the proximal LAD. She underwent successful stenting of the mid RCA with good angiographic results. She continues to be hypotensive requiring vasopressors. Because of that, she was brought to undergo stenting of the LAD. APPROACH: Right radial artery. COMPLICATION: None. LEVEL OF SEDATION: Moderate with sedation length of 40 minutes. PROCEDURE DESCRIPTION: After obtaining an informed consent, the patient was brought to the cardiac laborer [employer] farm. The right radial artery was cannulated using micropuncture technique and a micropuncture wire passed easily. Then I placed a 6-Andorran sheath in the right radial artery and I gave the patient 2 mg of verapamil IA and then started anticoagulation using Angiomax IV. Subsequently I did engage the left main initially using JL3.5 and then JL 3.0 because it was sitting better in the left main. After that, I did wire the LAD using a run- through wire. I did balloon angioplasty using 2.0 x 10 mm balloon before I deployed 2.0 x 15 mm Telly drug-eluting stent where the stent was positioned under fluoroscopy guidance and deployed under 20 atmospheres. After that, I post dilated the stent using 2.5 mm NC balloon. It was inflated under 18 atmospheres for 20 seconds with the following angiogram showing good angiographic results. The procedure at that point was completed without any complication. POSTPROCEDURE MANAGEMENT: 1. Dual anti-platelet therapy. 2. Risk factors modifications. 3. Follow up with the patient. MMNOEMIL / DARELLN: [id number] /
[2017-10-12] MEDS: ATORVASTATIN 80 MG TAB PO SCH (20:44)
[2017-10-13] MEDS: DOPamine DRIP 800 MG in DEXTROSE/WATER 1 500ML.BAG IV SCH ×2 (01:32→15:45)
[2017-10-13 04:32] LABS: Basophils % (A) 0 %; Eosinophils # (A) 0.1 k/uL (0-0.7); Eosinophils % (A) 1 %; HGB 9.1 gm/dL (11.4-16.0); Lymphocytes # (A) 0.9 k/uL (1.0-4.8); Lymphocytes % (A) 14 %; MCH 30.5 pg (25.0-35.0); MCHC 33.6 g/dL (31.0-37.0); MCV 90.8 fL (80.0-100.0); Mean Platelet Volume 6.5; Monocytes # (A) 0.4 k/uL (0-1.0); Monocytes % (A) 6 %; Neutrophils # (A) 4.8 k/uL (1.3-7.7); Neutrophils % (A) 75 %; Platelet Count 134 k/uL (150-450); RBC 2.97 m/uL (3.80-5.40); RDW 13.8 % (11.5-15.5); WBC 6.4 k/uL (3.8-10.6)
[2017-10-13 04:42] LABS: ALT 40 U/L (9-52); AST 79 U/L (14-36); Albumin 2.7 g/dL (3.5-5.0); Alkaline Phosphatase 44 U/L (38-126); Anion Gap 3 mmol/L; Blood Urea Nitrogen 10 mg/dL (7-17); Calcium 8.2 mg/dL (8.4-10.2); Carbon Dioxide 23 mmol/L (22-30); Chloride 113 mmol/L (98-107); Glucose 103 mg/dL (74-99); Magnesium 1.8 mg/dL (1.6-2.3); Phosphorus 2.7 mg/dL (2.5-4.5); Potassium 4.2 mmol/L (3.5-5.1); Sodium 139 mmol/L (137-145); Total Bilirubin 0.5 mg/dL (0.2-1.3); Total Protein 4.7 g/dL (6.3-8.2)
[2017-10-13] MEDS: SODIUM CHLORIDE 0.9% 1,000 ML IV SCH ×2 (08:08→10:48)
[2017-10-13] MEDS: MAGNESIUM SULFATE-D5W PMX 1 GM in DEXTROSE/WATER 1 100ML.BAG IVPB SCH ×2 (08:08→09:22)
[2017-10-13] MEDS: LEVOTHYROXINE 100 MCG TAB PO SCH (08:08)
[2017-10-13] MEDS: ASPIRIN 81 MG PO SCH (09:23)
[2017-10-13] MEDS: CLOPIDOGREL 75 MG TAB PO SCH (09:23)
--- NOTE | 2017-10-13 09:50 | P.PN ---
Subjective Progress Note Date: 10/13/17 Principal diagnosis: Chest pain Patient is a 72-year-old female with a history of hypertension, hypothyroidism, and dyslipidemia who presented to [facility] complaints of dizziness. She was found have an ST segment elevated myocardial infarction was transferred here. She was taken to the cath lab tech by cardiology and had a stent placed to the RCA, she was also noted to have some disease in the LAD. She was subsequently admitted to the ICU. She became hypotensive despite aggressive fluid administration. She subsequently was started on a dopamine drip on 10/11. She was started on aspirin, Plavix, and Lipitor. She had an echocardiogram done which showed an ejection fraction of 40-45%. She went back to the cath lab tech on the morning of 10/12 and had a stent placed to the LAD. Patient seen and examined at bedside. She denies any chest pain, shortness breath, nausea, vomiting, or constipation. She was up and ambulating yesterday and tolerated it well. She is frustrated that she is back on the dopamine drip this morning. Objective - Vital Signs Vital signs: Vital Signs Temp 98.7 F 10/13/17 04:00 Pulse 86 10/13/17 07:00 Resp 8 L 10/13/17 07:00 BP 87/58 10/13/17 07:00 Pulse Ox 97 10/13/17 07:30 Intake & Output 10/12/17 10/13/17 10/13/17 18:59 06:59 18:59 Intake Total 2177.944 2300 100 Output Total 2925 2050 Balance -747.056 250 100 Weight 74.1 kg Intake: IV 2085 1200 100 Magnesium Sulfate-D5w Pmx 100 1 gm In Dextrose/Water 1 100ml.bag @ 100 mls/hr IVPB Q1H [facility] Rx#: [id number] Sodium Chloride 0.9% 1, 500 1200 100 000 ml @ 100 mls/hr IV . Q10H [facility] Rx#:[id number] Sodium Chloride 0.9% 1, 900 000 ml @ 150 mls/hr IV . Q6H40M [facility] Rx#:[id number] Sodium Phosphate 10 mmol 250 In Sodium Chloride 0.9% 250 ml @ 125 mls/hr IVPB ONCE ONE Rx#:[id number] Intake, IV Titration 92.944 0 Amount DOPamine DRIP 800 mg In 92.944 0 Dextrose/Water 1 500ml. bag @ 10 MCG/KG/MIN 23.81 mls/hr IV .Q21H [facility] Rx#: [id number] Oral 1100 Output: Urine 3895 2050 Other: Voiding Method Bedpan Bedside Commode # Voids 1 # Bowel Movements 1 ABP, PAP, CO, CI - Last Documented Arterial Blood Pressure 49/49 - Exam General: Ill-appearing, no distress, appears at stated age Derm: warm, dry Head: atraumatic, normocephalic, symmetric Eyes: EOMI, no lid lag, anicteric sclera Mouth: no lip lesion, mucus membranes moist Cardiovascular: S1S2 reg, no murmur, positive posterior tibial pulse bilateral, Lungs: Clear to auscultation bilaterally, no rhonchi, no rales , no accessory muscle use Abdominal: soft, nontender to palpation, no guarding, no appreciable organomegaly Ext: no gross muscle atrophy, edema right hand, no contractures Neuro: CN II-XI grossly intact, no focal neuro deficits Psych: Alert, oriented, appropriate affect - Labs CBC & Chem 7: 10/13/17 04:17 10/13/17 04:17 Labs: Abnormal Lab Results - Last 24 Hours (Table) 10/12/17 10/12/17 10/13/17 Range/Units 04:47 12:01 04:17 RBC 3.08 L 2.97 L (3.80-5.40) m/uL Hgb 9.2 L 9.1 L (11.4-16.0) gm/dL Hct 27.3 L 27.0 L (34.0-46.0) % Plt Count 148 L 134 L (150-450) k/uL Lymphocytes # 0.9 L (1.0-4.8) k/uL Chloride (98-107) mmol/L Creatinine (0.52-1.04) mg/dL Glucose (74-99) mg/dL Calcium (8.4-10.2) mg/dL Iron 27 L (50-170) ug/dL Iron Saturation 11.69 L (12.00-45.00) AST (14-36) U/L Total Protein (6.3-8.2) g/dL Albumin (3.5-5.0) g/dL 10/13/17 Range/Units 04:17 RBC (3.80-5.40) m/uL Hgb (11.4-16.0) gm/dL Hct (34.0-46.0) % Plt Count (150-450) k/uL Lymphocytes # (1.0-4.8) k/uL Chloride 113 H (98-107) mmol/L Creatinine 0.50 L (0.52-1.04) mg/dL Glucose 103 H (74-99) mg/dL Calcium 8.2 L (8.4-10.2) mg/dL Iron (50-170) ug/dL Iron Saturation (12.00-45.00) AST 79 H (14-36) U/L Total Protein 4.7 L (6.3-8.2) g/dL Albumin 2.7 L (3.5-5.0) g/dL Assessment and Plan Assessment: Acute ST segment elevated myocardial infarction -Cardiology recommendations -Status post stent RCA, LAD -On aspirin, Plavix, and statin Anemia, suspected delusional secondary to aggressive fluid resuscitation -Repeat CBC in AM if stable to need to recheck Hypotension, probable causes cardiac shock -Continue with dopamine drip -Wean as tolerated -Cortisol level in AM Ischemic cardiomyopathy with ejection fraction 40-45% -Patient is still hypotensive but ideally will need lisinopril and Lopressor prior to discharge - Outpatient follow-up with cardiology Hypertension, currently hypotensive -Home Lopressor is on hold -Currently on dopamine drip Dyslipidemia -Statin Hypothyroidism -Levothyroxine DVT prophylaxis: Heparin Discussed with: Patient, nursing Anticipated discharge: 2-[address]: Home A total of 35 minutes was spent on the care of this complex patient more than 50 % of the time was spent in counseling and care coordination.
[2017-10-13] MEDS ORDERED: ALBUMIN HUMAN 5% 500 ML in EMPTY BAG 1 BAG IVPB STA (10:17)
--- NOTE | 2017-10-13 12:08 | PN ---
PROGRESS NOTE HISTORY: This patient is status post stent to the LAD. She is doing well. She is sitting comfortably in the chair without any distress or dizziness. The patient still runs a borderline low blood pressure. Currently patient is on 2 mcg of dopamine. Her urine output remains excellent. Actually patient and is in negative fluid balance. Hear, first and second heart sounds are normal. Right radial pulse is 2+. Lungs are clear to auscultation and percussion. We will wean her off the dopamine slowly as long as her blood pressure remains . Continue IV fluids. The patient will also be given 500 mL of albumin. MMODL / IJN: [id number] /
[2017-10-13] MEDS: HEPARIN SODIUM,PORCINE 5,000 UNIT/ML 1 ML VIAL SQ SCH (15:45)
[2017-10-13] MEDS: ATORVASTATIN 80 MG TAB PO SCH (20:20)
[2017-10-14] MEDS: HEPARIN SODIUM,PORCINE 5,000 UNIT/ML 1 ML VIAL SQ SCH ×4 (00:15→23:28)
[2017-10-14] MEDS: SODIUM CHLORIDE 0.9% 1,000 ML IV SCH ×2 (03:21→09:40)
[2017-10-14 05:02] LABS: Basophils % (A) 0 %; Eosinophils # (A) 0.2 k/uL (0-0.7); Eosinophils % (A) 3 %; HCT 24.9 % (34.0-46.0); HGB 8.6 gm/dL (11.4-16.0); Lymphocytes # (A) 1.1 k/uL (1.0-4.8); Lymphocytes % (A) 18 %; MCH 31.1 pg (25.0-35.0); MCHC 34.6 g/dL (31.0-37.0); MCV 89.9 fL (80.0-100.0); Mean Platelet Volume 6.6; Monocytes # (A) 0.4 k/uL (0-1.0); Monocytes % (A) 7 %; Neutrophils # (A) 4.4 k/uL (1.3-7.7); Neutrophils % (A) 69 %; Platelet Count 155 k/uL (150-450); RBC 2.77 m/uL (3.80-5.40); RDW 14.3 % (11.5-15.5); WBC 6.4 k/uL (3.8-10.6)
[2017-10-14 05:09] LABS: Anion Gap 5 mmol/L; Blood Urea Nitrogen 11 mg/dL (7-17); Calcium 8.7 mg/dL (8.4-10.2); Carbon Dioxide 23 mmol/L (22-30); Chloride 112 mmol/L (98-107); Glucose 98 mg/dL (74-99); Magnesium 1.6 mg/dL (1.6-2.3); Phosphorus 2.9 mg/dL (2.5-4.5); Potassium 3.8 mmol/L (3.5-5.1); Sodium 140 mmol/L (137-145)
[2017-10-14] MEDS ORDERED: POTASSIUM CHLORIDE ER 20 MEQ TAB.ER PO SCH (06:00)
[2017-10-14] MEDS: MAGNESIUM SULFATE-D5W PMX 1 GM in DEXTROSE/WATER 1 100ML.BAG IVPB SCH ×2 (06:42→07:11)
[2017-10-14] MEDS: LEVOTHYROXINE 100 MCG TAB PO SCH (06:46)
[2017-10-14] MEDS: ASPIRIN 81 MG PO SCH (09:38)
[2017-10-14] MEDS: CLOPIDOGREL 75 MG TAB PO SCH (09:38)
[2017-10-14] MEDS: FUROSEMIDE 10 MG/ML 4 ML VIAL IV STA ×2 (12:05→18:18)
[2017-10-14] MEDS: DOPamine DRIP 800 MG in DEXTROSE/WATER 1 500ML.BAG IV SCH (12:06)
--- NOTE | 2017-10-14 17:23 | P.PN ---
Subjective Progress Note Date: 10/14/17 Principal diagnosis: Chest pain Patient is a 72-year-old female with a history of hypertension, hypothyroidism, and dyslipidemia who presented to [facility] complaints of dizziness. She was found have an ST segment elevated myocardial infarction was transferred here. She was taken to the brick and blocker aid labor by cardiology and had a stent placed to the RCA, she was also noted to have some disease in the LAD. She was subsequently admitted to the ICU. She became hypotensive despite aggressive fluid administration. She subsequently was started on a dopamine drip on 10/11. She was started on aspirin, Plavix, and Lipitor. She had an echocardiogram done which showed an ejection fraction of 40-45%. She went back to the [facility] and blocker aid labor on the morning of 10/12 and had a stent placed to the LAD. The dopaimine gtt was stopped on 10/12 but had to be restarted on 10/13, but was weaned by 10/14. Cortisol level was tested and came back normal. Patient seen and examined at bedside. No chest pain, shortness of breath, nausea, or vomiting. Has not been up and walking in the hallways. Reports going to the bathroom often. No other complaints currently. Anxious to go home. Objective - Vital Signs Vital signs: Vital Signs Temp 98.7 F 10/14/17 16:24 Pulse 114 H 10/14/17 14:30 Resp 18 10/14/17 16:24 BP 113/65 10/14/17 16:24 Pulse Ox 98 10/14/17 16:24 Intake & Output 10/13/17 10/14/17 10/14/17 18:59 06:59 18:59 Intake Total 668.984 1904 740 Output Total 1600 1475 1170 Balance -913.310 -250 -430 Weight 73.5 kg Intake: IV 400 1100 500 Magnesium Sulfate-D5w Pmx 100 1 gm In Dextrose/Water 1 100ml.bag @ 100 mls/hr IVPB Q1H [facility] Rx#: [id number] Sodium Chloride 0.9% 1, 1100 400 000 ml @ 100 mls/hr IV . Q10H [facility] Rx#:[id number] Sodium Chloride 0.9% 1, 400 000 ml @ 100 mls/hr IV . Q10H [facility] Rx#:[id number] Intake, IV Titration 41.690 Amount DOPamine DRIP 800 mg In 41.690 Dextrose/Water 1 500ml. bag @ 10 MCG/KG/MIN 23.81 mls/hr IV .Q21H [facility] Rx#: [id number] Oral 245 125 120 Tube Feeding 120 Output: Urine 1600 1475 1170 Other: Voiding Method Bedside Commode Bedside Commode # Voids 1 1 1 # Bowel Movements 1 2 2 ABP, PAP, CO, CI - Last Documented Arterial Blood Pressure 49/49 - Exam General: non toxic, no distress, appears at stated age Derm: warm, dry Head: atraumatic, normocephalic, symmetric Eyes: EOMI, no lid lag, anicteric sclera Mouth: no lip lesion, mucus membranes moist Cardiovascular: S1S2 reg, no murmur, positive posterior tibial pulse bilateral, Lungs:crackels b/l bases, no rhonchi, no rales , no accessory muscle use Abdominal: soft, nontender to palpation, no guarding, no appreciable organomegaly Ext: no gross muscle atrophy, 2+ edema b/l LE, no contractures Neuro: CN II-XI grossly intact, no focal neuro deficits Psych: Alert, oriented, appropriate affect - Labs CBC & Chem 7: 10/14/17 04:33 10/14/17 04:29 Labs: Abnormal Lab Results - Last 24 Hours (Table) 10/14/17 10/14/17 Range/Units 04:29 04:33 RBC 2.77 L (3.80-5.40) m/uL Hgb 8.6 L (11.4-16.0) gm/dL Hct 24.9 L (34.0-46.0) % Chloride 112 H (98-107) mmol/L Assessment and Plan Assessment: Acute ST segment elevated myocardial infarction -Cardiology recommendations -Status post stent RCA, LAD -On aspirin, Plavix, and statin Anemia, suspected secondary to aggressive fluid resuscitation -Repeat CBC -Fe studies normal Ischemic cardiomyopathy with ejection fraction 40-45% -Patient is still hypotensive but ideally will need lisinopril and Lopressor prior to discharge - Outpatient follow-up with cardiology - Starting to develop signs of fluid overload. IVF stopped. Cardio did not want to administer lasix. Hypertension, currently hypotensive -Home Lopressor is on hold - follow BP Dyslipidemia -Statin Hypothyroidism -Levothyroxine Resolved: cardiogenic shock DVT prophylaxis: Heparin Discussed with: Patient, nursing Anticipated discharge: 24-[address]: Home A total of 35 minutes was spent on the care of this complex patient more than 50 % of the time was spent in counseling and care coordination.
[2017-10-14] MEDS: ATORVASTATIN 80 MG TAB PO SCH (20:02)
--- NOTE | 2017-10-15 03:51 | PN ---
PROGRESS NOTE This patient was admitted with acute inferior wall myocardial infarction and the patient underwent stent to the RCA and subsequent to LAD. The patient had remained stable. She had a few episodes of loose bowel movements yesterday. The patient's blood pressure remained stable. She denies any dizziness or lightheadedness and patient has been ambulatory in the room. First and second heart sounds are normal. Lungs are clear to auscultation and percussion. The patient's urine output remains good. Patient will be transferred to the selective care unit and will be ambulated. MMODL / IJN: [id number] /
[2017-10-15 06:22] LABS: HCT 25.6 % (34.0-46.0); HGB 8.6 gm/dL (11.4-16.0); MCHC 33.6 g/dL (31.0-37.0); MCV 89.3 fL (80.0-100.0); Mean Platelet Volume 6.9; Platelet Count 186 k/uL (150-450); RBC 2.86 m/uL (3.80-5.40); RDW 14.4 % (11.5-15.5)
[2017-10-15] MEDS: LEVOTHYROXINE 100 MCG TAB PO SCH (06:23)
[2017-10-15 06:48] LABS: Anion Gap 3 mmol/L; Blood Urea Nitrogen 9 mg/dL (7-17); Calcium 8.6 mg/dL (8.4-10.2); Carbon Dioxide 28 mmol/L (22-30); Chloride 109 mmol/L (98-107); Glucose 91 mg/dL (74-99); Magnesium 1.8 mg/dL (1.6-2.3); Phosphorus 3.2 mg/dL (2.5-4.5); Sodium 140 mmol/L (137-145)
[2017-10-15] MEDS: HEPARIN SODIUM,PORCINE 5,000 UNIT/ML 1 ML VIAL SQ SCH ×3 (08:50→23:24)
[2017-10-15] MEDS: CLOPIDOGREL 75 MG TAB PO SCH (08:50)
[2017-10-15] MEDS: ASPIRIN 81 MG PO SCH (08:50)
[2017-10-15] MEDS: ACETAMINOPHEN TAB 325 MG TAB PO PRN ×2 (09:05→19:51)
--- NOTE | 2017-10-15 16:02 | P.PN ---
Subjective Progress Note Date: 10/15/17 (Delayed charting patient seen at approximately 9: 30 AM.) Principal diagnosis: Chest pain Patient is a 72-year-old female with a history of hypertension, hypothyroidism, and dyslipidemia who presented to [facility] complaints of dizziness. She was found have an ST segment elevated myocardial infarction was transferred here. She was taken to the dental laboratory supervisor by cardiology and had a stent placed to the RCA, she was also noted to have some disease in the LAD. She was subsequently admitted to the ICU. She became hypotensive despite aggressive fluid administration. She subsequently was started on a dopamine drip on 10/11. She was started on aspirin, Plavix, and Lipitor. She had an echocardiogram done which showed an ejection fraction of 40-45%. She went back to the dental laboratory supervisor on the morning of 10/12 and had a stent placed to the LAD. The dopaimine gtt was stopped on 10/12 but had to be restarted on 10/13, but was weaned by 10/14. Cortisol level was tested and came back normal. Her blood pressure remained normal after coming off dopamine. Patient seen and examined at bedside. No chest pain, no shortness of breath, no nausea or vomiting. Has been up and walking. Chest pain-free. Anxious to go home. Objective - Vital Signs Vital signs: Vital Signs Temp 98.6 F 10/15/17 08:00 Pulse 84 10/15/17 12:00 Resp 16 10/15/17 04:00 BP 115/75 10/15/17 12:00 Pulse Ox 97 10/15/17 12:00 Intake & Output 10/14/17 10/15/17 10/15/17 18:59 06:59 18:59 Intake Total 740 600 Output Total 1170 Balance -430 600 Weight 71.6 kg Intake: IV 500 Magnesium Sulfate-D5w Pmx 100 1 gm In Dextrose/Water 1 100ml.bag @ 100 mls/hr IVPB Q1H [facility] Rx#: [id number] Sodium Chloride 0.9% 1, 400 000 ml @ 100 mls/hr IV . Q10H [facility] Rx#:[id number] Oral 120 600 Tube Feeding 120 Output: Urine 1170 Other: Voiding Method Toilet # Voids 1 1 1 # Bowel Movements 2 ABP, PAP, CO, CI - Last Documented Arterial Blood Pressure 49/49 - Exam General: non toxic, no distress, appears at stated age Derm: warm, dry Head: atraumatic, normocephalic, symmetric Eyes: EOMI, no lid lag, anicteric sclera Mouth: no lip lesion, mucus membranes moist Cardiovascular: S1S2 reg, no murmur, positive posterior tibial pulse bilateral, Lungs: crackels b/l bases, no rhonchi, no rales , no accessory muscle use Abdominal: soft, nontender to palpation, no guarding, no appreciable organomegaly Ext: no gross muscle atrophy, 1+ edema b/l LE, no contractures Neuro: CN II-XI grossly intact, no focal neuro deficits Psych: Alert, oriented, appropriate affect - Labs CBC & Chem 7: 10/15/17 05:42 10/15/17 05:42 Labs: Abnormal Lab Results - Last 24 Hours (Table) 10/15/17 10/15/17 Range/Units 05:42 05:42 RBC 2.86 L (3.80-5.40) m/uL Hgb 8.6 L (11.4-16.0) gm/dL Hct 25.6 L (34.0-46.0) % Chloride 109 H (98-107) mmol/L Assessment and Plan Assessment: Acute ST segment elevated myocardial infarction -Cardiology recommendations -Status post stent RCA, LAD -On aspirin, Plavix, and statin Ischemic cardiomyopathy with ejection fraction 40-45% -Lopressor ordered today by cardiology, ideally patient will need lisinopril over time but currently contraindicated secondary to relative hypotension and initiation of beta ashley. - Outpatient follow-up with cardiology Hypertension, currently hypotensive -Lopressor - follow BP Dyslipidemia -Statin Hypothyroidism -Levothyroxine Resolved: cardiogenic shock Anemia, suspected secondary to aggressive fluid resuscitation, stable Hope to DC home if blood pressure stable in a.m. DVT prophylaxis: Heparin Discussed with: Patient, nursing Anticipated discharge: [address]: Home A total of 35 minutes was spent on the care of this complex patient more than 50 % of the time was spent in counseling and care coordination.
[2017-10-15] MEDS: METOPROLOL TARTRATE 12.5 MG TAB PO SCH (20:03)
[2017-10-15] MEDS: ATORVASTATIN 80 MG TAB PO SCH (20:03)
--- NOTE | 2017-10-16 04:11 | PN ---
PROGRESS NOTE This patient is status post inferior wall myocardial infarction and with stent to the RCA and LAD. Patient is doing fairly well. The patient had a low-grade fever this afternoon. Heart rate is 104 per minute. Blood pressure is now 123/76 mmHg. First and second heart sounds are normal. Lungs are clinically clear to auscultation and percussion. Patient's hemoglobin is 8.6. Electrolytes are normal. Creatinine is 0.6. We will continue the patient is started on metoprolol 12.5 mg b.i.d. If the patient's condition remains stable, she can be discharged home in next 24-48 hours. MMODL / IJN: [id number] /
[2017-10-16 04:52] VITALS: TEMP 98
[2017-10-16] MEDS: LEVOTHYROXINE 100 MCG TAB PO SCH (06:01)
[2017-10-16] MEDS: ASPIRIN 81 MG PO SCH (08:45)
[2017-10-16] MEDS: CLOPIDOGREL 75 MG TAB PO SCH (08:45)
[2017-10-16] MEDS: HEPARIN SODIUM,PORCINE 5,000 UNIT/ML 1 ML VIAL SQ SCH (08:45)
[2017-10-16] MEDS: METOPROLOL TARTRATE 12.5 MG TAB PO SCH (08:46)
[2017-10-16 10:05] VITALS: RESP 18
--- NOTE | 2017-10-16 12:49 | P.PN ---
Subjective Progress Note Date: 10/16/17 Principal diagnosis: This is a 72-year-old female with history of hypertension, hypothyroidism, hyperlipidemia, who presented to the hospital with a non-ST elevation myocardial infarction, she underwent angioplasty and stenting of the right coronary artery. Patient was also found to have disease in her LAD. Echocardiogram with Doppler study revealed an ejection fraction of 40-45%. Patient was seen and examined this morning, feels well, denies any chest pain or difficulty in breathing. She has been up ambulating without any difficulty. Her blood pressure today 118/78. We will increase her dose of beta ashley to 25 mg one tablet by mouth twice a day today. She may be able to be discharged home from our perspective to follow-up with Dr. Herzog in the office post discharge. The addition of MATHEW inhibitor will be considered as an outpatient, because her blood pressure here has been running low. Objective - Vital Signs Vital signs: Vital Signs Temp 98.0 F 10/16/17 04:00 Pulse 98 10/16/17 08:00 Resp 18 10/16/17 08:00 BP 118/78 10/16/17 08:00 Pulse Ox 99 10/16/17 08:00 Intake & Output 10/15/17 10/16/17 10/16/17 18:59 06:59 18:59 Intake Total 960 240 Balance 960 240 Weight 71.2 kg Intake: Oral 960 240 Other: Voiding Method Toilet # Voids 1 1 ABP, PAP, CO, CI - Last Documented Arterial Blood Pressure 49/49 - Exam PHYSICAL EXAMINATION: GENERAL: 72-year-old female in no acute distress at the time of my examination. HEENT: Head is atraumatic, normocephalic. Pupils equal, round. Sclera anicteric. Conjunctiva are clear. Mucous membranes of the mouth are moist. Neck is supple. There is no elevated jugular venous pressure.] bruit is heard. HEART EXAMINATION: Heart S1, S2 normal. No murmur or gallop heard. CHEST EXAMINATION: Lungs are clear to auscultation and precussion. No chest wall tenderness is noted on palpation or with deep breathing. ABDOMEN: Soft, nontender. Bowel sounds are heard. No organomegaly noted. EXTREMITIES: 2+ peripheral pulses with no evidence of peripheral edema and no calf tenderness noted. NEUROLOGIC patient is awake, alert and oriented ?-3. . - Labs CBC & Chem 7: 10/15/17 05:42 10/15/17 05:42 Assessment and Plan Plan: Assessment and plan #1 ST elevation myocardial infarction, status post angioplasty and stenting of the RCA #2 hypertension #3 hyperlipidemia #4 hypothyroidism Plan Patient may be able to be discharged home today. We will make her a follow-up appointment with Dr. Herzog in the office post discharge. She will be discharged home on aspirin 81 mg daily, Lipitor 80 mg daily, Plavix 75 mg daily , metoprolol tartrate 5 mg one tablet by mouth twice a day, sublingual nitroglycerin as needed for chest pain. Because of hypotension, MATHEW inhibitor was not initiated here, we will repeat look at things as an outpatient and initiate MATHEW inhibitor at that time. DNP note has been reviewed, I agree with a documented findings and plan of care. Patient was seen and examined.
[2017-10-16 14:27] VITALS: BP 114/58; PULSE 99
--- NOTE | 2017-10-16 15:41 | P.PN ---
Subjective Overnight the patient did very well. She not have any shortness of breath chest pain abdominal discomfort changes in the bowel movement habits habits. She tolerated diet very well. Blood pressure stabbing lysed and she was freely ambulating in the room without any dizziness or discomfort. REVIEW OF SYSTEMS: CONSTITUTIONAL: She denies any fevers or night sweats. DERMATOLOGIC: She denies any rashes. HEENT: Eyes: She has had no changes in her vision. No eye pain. No discharge. ENT: She had no hearing changes, no throat pain, no sinus difficulties. No hoarseness. CARDIOVASCULAR: She denies any chest pain or abnormal heart beats, or any swelling in her ankles or feet. RESPIRATORY: No wheezing or coughing. GASTROINTESTINAL: As noted above in history of present illness. GENITOURINARY: She denies any urinary urgency, frequency or burning, and there has been no blood in her urine. She has no flank pain. She has also had no vaginal discharge or bleeding. MUSCULOSKELETAL: She notes full range of motion of all her joints without pain or swelling. ENDOCRINE: She denies any heat or cold intolerance or excessive thirst or urination. NEUROLOGICAL: Currently, no headache. She has no vision changes, or fainting. No numbness or tingling. Objective - Vital Signs Vital signs: Vital Signs Temp 98.0 F 10/16/17 04:00 Pulse 98 10/16/17 08:00 Resp 18 10/16/17 08:00 BP 118/78 10/16/17 08:00 Pulse Ox 99 10/16/17 08:00 Intake & Output 10/15/17 10/16/17 10/16/17 18:59 06:59 18:59 Intake Total 960 240 Balance 960 240 Weight 71.2 kg Intake: Oral 960 240 Other: Voiding Method Toilet # Voids 1 1 ABP, PAP, CO, CI - Last Documented Arterial Blood Pressure 49/49 - Exam General: No distress. Oriented x 3, normal mood and affect . Ambulating without difficulty. HEENT: Head: Normocephalic, atraumatic, no visible or palpable masses, depressions, or scaring, conjunctiva clear, sclera non-icteric, EOM intact, PERRL Oral: Mucous membranes moist, no mucosal lesions. Pharynx: Mucosa non-inflamed, no tonsillar hypertrophy or exudate Neck: Supple, without lesions, bruits, or adenopathy, thyroid non-enlarged and non-tender Heart: No cardiomegaly or thrills; regular rate and rhythm, no murmur or gallop Lungs: Clear to auscultation and percussion Abdomen: Bowel sounds normal, no tenderness, organomegaly, masses, or hernia Back: Spine normal without deformity or tenderness, no CVA tenderness Extremities: No amputations or deformities, cyanosis, edema or varicosities, peripheral pulses intact Musculoskeletal: No peripheral joint swelling, pain, erythema. No clubbing Skin: Good turgor, no rash, unusual bruising or prominent lesions Neurologic: CN 2-12 normal. Sensation to pain, touch, and proprioception normal. DTRs normal in upper and lower extremities. No pathologic reflexes. Psychiatric: Oriented X3, intact recent and remote memory, judgment and insight , normal mood and affect. - Labs CBC & Chem 7: 10/15/17 05:42 10/15/17 05:42 Assessment and Plan (1) ST elevation myocardial infarction (STEMI) Narrative/Plan: Continues with metoprolol and the platelet therapy Tolerates Lopressor better Statin Cardiac rehab Cardiology following Current Visit: Yes Status: Acute Priority: High Code(s): I21.3 - ST ELEVATION (STEMI) MYOCARDIAL INFARCTION OF [facility] SITE SNOMED Code(s): 950232596 (2) Ischemic cardiomyopathy Narrative/Plan: Appears euvolemic Due to hypotension cannot tolerate AceI or ARB Current Visit: Yes Status: Acute Priority: High Code(s): I25.5 - ISCHEMIC CARDIOMYOPATHY SNOMED Code(s): 740780413 (3) Essential (primary) hypertension Narrative/Plan: Due to hypotension currently only on low-dose metoprolol tolerates well Current Visit: Yes Status: Chronic Priority: Medium Code(s): I10 - ESSENTIAL (PRIMARY) HYPERTENSION SNOMED Code(s): 11853076 (4) Hypothyroidism Narrative/Plan: Continue home levothyroxine Current Visit: Yes Status: Acute Code(s): E03.9 - HYPOTHYROIDISM, UNSPECIFIED SNOMED Code(s): 99227307 (5) Anemia Narrative/Plan: Normocytic This has been stable No signs of bleeding There is a component of dilution There is a component of early iron deficiency Would recommend follow-up with CBC 1-2 weeks with Primary care physician and repeating iron studies Current Visit: Yes Status: Acute Code(s): D64.9 - ANEMIA, UNSPECIFIED SNOMED Code(s): 234396728
--- NOTE | 2017-10-16 15:44 | P.DS ---
Providers Date of admission: 10/10/17 14:36 Attending physician: Fadi Bautista Consults: 10/10/17 15:43 Consult Physician Routine Consulting Provider: [facility] Consult Reason/Comments: Post Interventional patient Do you want consulting provider notified?: Already Contacted 10/10/17 21:54 Consult Physician Routine Consulting Provider: Marco Antonio Lobato Consult Reason/Comments: medical management/hospitalist Do you want consulting provider notified?: Already Contacted Primary care physician: Brock Steward - Discharge Diagnosis(es) (1) ST elevation myocardial infarction (STEMI) Patient underwent cardiac cath initially and had stenting of her RCA. Severe disease of LAD was found as well, but was not initially treated as she has inferior wall AK. She was maintained on DAPT, statin and BB. Subsequently became hypotensive and was started on Dopamine. She was then taken to [facility] for reevaluation and initial staent was found to be patent. LAD was then stented. Tolerated all these procedures well. Current Visit: Yes Status: Acute Priority: High (2) Ischemic cardiomyopathy EF 40-45% Due to hypotension, she couldn't tolerate ACEI or ARB and was maintained on low dose of metoprolol which she was able to tolerate better Current Visit: Yes Status: Acute Priority: High (3) Essential (primary) hypertension Patient had low BP and was able to tolerate only low dose metoprolol Current Visit: Yes Status: Chronic Priority: Medium (4) Hypothyroidism Aerobics and was continued with no change in and home dose Current Visit: Yes Status: Acute (5) Anemia Patient hemoglobin decreased during this hospital stay presumably believed to be due to some dilution from IV fluids. Iron studies were stable although suspicious for early iron deficiency Would recommend closely monitoring following up CBC in 1-2 weeks along with iron studies and other appropriate workup on outpatient basis Current Visit: Yes Status: Acute Patient Condition at Discharge: Stable Plan - Discharge Summary Discharge Rx Participant: Yes New Discharge Prescriptions: New Aspirin 81 mg PO DAILY #81 chew Atorvastatin [Lipitor] 80 mg PO HS #303 tab Clopidogrel [Plavix] 75 mg PO DAILY #30 tab Metoprolol Tartrate [Lopressor] 25 mg PO BID #60 tab Nitroglycerin Sl Tabs [Nitrostat] 0.4 mg SUBLINGUAL Q5M PRN #25 tab PRN Reason: Chest Pain Continue Levothyroxine Sodium [Synthroid] 100 mcg PO DAILY Discontinued Metoprolol Tartrate [Lopressor] 25 mg PO DAILY No Action Fluticasone Nasal Ozone [Flonase Nasal Ozone] 1 - 2 spray EA NOSTRIL BID PRN PRN Reason: Allergy Symptoms Discharge Medication List Fluticasone Nasal Ozone [Flonase Nasal Ozone] 1 - 2 spray EA NOSTRIL BID PRN 09/20 [History] Levothyroxine Sodium [Synthroid] 100 mcg PO DAILY 10/10/17 [History] Aspirin 81 mg PO DAILY #81 chew 10/16/17 [Rx] Atorvastatin [Lipitor] 80 mg PO HS #303 tab 10/16/17 [Rx] Clopidogrel [Plavix] 75 mg PO DAILY #30 tab 10/16/17 [Rx] Metoprolol Tartrate [Lopressor] 25 mg PO BID #60 tab 10/16/17 [Rx] Nitroglycerin Sl Tabs [Nitrostat] 0.4 mg SUBLINGUAL Q5M PRN #25 tab 10/16/17 [Rx ] Follow up Appointment(s)/Referral(s): Matt Bellamy MD [STAFF PHYSICIAN] - 2 Weeks (Spoke to medical receptionist. Office will call with appointment time) Brock Steward MD [Primary Care Provider] - 10/24/17 10:00 am (Monday) Patient Instructions/Handouts: *Surgery [facility] - After Heart Catheterization - Video Network Engineer Instructions, Left Heart Catheterization (DC) Activity/Diet/Wound Care/Special Instructions: Cardiac heart friendly diet Resume activity as tolerated Follow-up with cardiology and PCP Inquire about cardiac rehab Discharge Disposition: HOME SELF-CARE
[2017-10-16] MEDS ORDERED: METOPROLOL TARTRATE 25 MG TAB PO SCH (21:00)
== END 2017-10-16 17:13 | disposition home or self-care (01) | DRG 246 ==
LOC: EC 14:21 → 6ICU 14:36 → 6SEL 10-14 18:27
PROVIDERS: ADMIT Internal Medicine Cardiovascular Disease; ATTEND Internal Medicine Cardiovascular Disease
PROC: 4A023N7 Measurement of Cardiac Sampling and Pressure, Left Heart, Percutaneous Approach (ICD-10-PCS; 2017-10-10)
PROC: B2111ZZ Fluoroscopy of Multiple Coronary Arteries using Low Osmolar Contrast (ICD-10-PCS; 2017-10-10)
PROC: 027034Z Dilation of Coronary Artery, One Artery with Drug-eluting Intraluminal Device, Percutaneous Approach (ICD-10-PCS; principal; 2017-10-10 15:35)
PROC: 027034Z Dilation of Coronary Artery, One Artery with Drug-eluting Intraluminal Device, Percutaneous Approach (ICD-10-PCS; 2017-10-12)
DX: I21.19 ST elevation (STEMI) myocardial infarction involving other coronary artery of inferior wall (principal); R57.0 Cardiogenic shock; D50.9 Iron deficiency anemia, unspecified; E03.9 Hypothyroidism, unspecified; E78.5 Hyperlipidemia, unspecified; I10 Essential (primary) hypertension; I25.10 Atherosclerotic heart disease of native coronary artery without angina pectoris; I25.5 Ischemic cardiomyopathy; R50.9 Fever, unspecified; Z87.891 Personal history of nicotine dependence; Z85.42 Personal history of malignant neoplasm of other parts of uterus; Z79.890 Hormone replacement therapy; Z79.899 Other long term (current) drug therapy; Z82.49 Family history of ischemic heart disease and other diseases of the circulatory system
CPT/HCPCS: 36415; 71045; 80048; 80053; 80061; 82247; 82533; 82550; 82553; 82728; 83036; 83540; 83550; 83735; 84100; 84132; 84439; 84443; 84450; 84460; 84484; 85025; 85027; 85347; 85610; 85730; 87324; 93005; 93306; 93458; 99285